=== PATIENT | male | born 1950 | race African-American/Black ===

== ENCOUNTER 2016-10-14 09:47 | Inpatient (IN) | payer OTHER ==
[2016-10-14 11:13] VITALS: BMI 22.0
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
[2016-10-14] MEDS ORDERED: MAG HYDROX/AL HYDROX/SIMETH 30 ML UNIT-DOSE CUP PO PRN (13:21)
[2016-10-14] MEDS ORDERED: MENTHOL/PHENOL 1 EACH UD MM PRN (13:21)
[2016-10-14] MEDS ORDERED: guaiFENesin/D-METHORPHAN HB 10 ML UNIT-DOSE CUPS PO PRN (13:21)
[2016-10-14] MEDS ORDERED: ACETAMINOPHEN 325 MG TABLET (FP) PO PRN (13:21)
[2016-10-14] MEDS ORDERED: chlordiazePOXIDE HCL 25 MG CAPSULE PO PRN (13:21)
[2016-10-14] MEDS ORDERED: diphenhydrAMINE HCL 50 MG CAPSULE PO PRN (13:21)
[2016-10-14] MEDS ORDERED: MAGNESIUM HYDROX 2400MG/30ML ORAL SUSPENSION 30 ML CUP PO PRN (13:21)
[2016-10-14] MEDS ORDERED: IBUPROFEN 400 MG TABLET (FP) PO PRN (13:21)
[2016-10-14] MEDS ORDERED: MAGNESIUM CITRATE 300 ML BOTTLE PO PRN (13:21)
[2016-10-14] MEDS ORDERED: NICOTINE POLACRILEX 2 MG GUM BUC PRN (13:21)
[2016-10-14] MEDS ORDERED: P-EPHED 60MG/TRIPROLIDI 2.5MG TABLET PO PRN (13:21)
[2016-10-14] MEDS ORDERED: hydrOXYzine PAMOATE 25 MG CAPSULE (FP) PO PRN (13:21)
[2016-10-14] MEDS ORDERED: LOPERAMIDE HCL 2 MG CAPSULE PO PRN (13:21)
[2016-10-14] MEDS ORDERED: chlordiazePOXIDE HCL 25 MG CAPSULE PO ONE (13:41)
[2016-10-14] MEDS ORDERED: METHADONE HCL 10 MG TABLET (FOR DETOX USE ONLY) PO ONE ×2 (13:43→23:00)
--- NOTE | 2016-10-14 14:12 | CONSULT ---
[facility] Psychiatric Consult - Data Date of interview: 10/14/16 Admission source: [facility] Identifying data: This is 57 years old male with no psychiatric hospitalization history, multiple medical problems intoxicated with: Crack, Heroin, Alcohol and Nicotine Substance Abuse History: - Smoking Cessation. Smoking history: Current every day smoker. Have you smoked in the past 12 months: Yes. Aproximately how many cigarettes per day: 3. Cigars Per Day: 0. Hx Chewing Tobacco Use: No. Initiated information on smoking cessation: Yes. 'Breaking Loose' booklet given : 10/14/16. - Substance & Tx. History. Hx Alcohol Use: Yes (VODKA/RUM/BEER). Hx Substance Use: Yes (HEROIN/COCAINE). Substance Use Type: Alcohol, Cocaine, Heroin. Hx Substance Use Treatment: Yes ([facility]). - Substances Abused. * * Heroin. Route: Inhalation. Frequency: Daily. Amount used: 2-3 bags. Age of first use: 43. Date of Last Use: 10/13/16. Cocaine. Route: Inhalation. Frequency: Daily. Amount used: $200. Age of first use: 54. Date of Last Use : 10/13/16. Alcohol-vodka/rum/beer. Route: Oral. Frequency: Daily. Amount used: 1 pt./1-6 pk. Age of first use: 17. Date of Last Use: 10/14/16 Medical History: AIDS, GERD, HepC+, Neuropathy Psychiatric History: Patient reports history of Depressioin and anxiety, reports taking prior to admikssion: Gabapentine 300mg po tid Physical/Sexual Abuse/Trauma History: Denies Additional Comment: Gabapentine 300mg po tid Mental Status Exam - Mental Status Exam Alert and Oriented to: Person Cognitive Function: Fair Patient Appearance: Unkempt Mood: Sad Affect: Flat Patient Behavior: Sedated Speech Pattern: Delayed Voice Loudness: Mildly Soft/Quiet Thought Process: Circumstantial Thought Disorder: Being Controlled Hallucinations: Denies Suicidal Ideation: Denies Homicidal Ideation: Denies Insight/Judgement: Fair Sleep: Difficulty falling asleep Appetite: Weight loss Muscle strength/Tone: Normal Gait/Station: Shuffling Additional Comments: Gabapentine 300mg po tid Psychiatric Findings - Problem List ([place] 1, 2,3) (1) Opioid dependence with withdrawal Current Visit: Yes Status: Acute (2) Alcohol dependence with uncomplicated withdrawal Current Visit: Yes Status: Chronic (3) Alcohol dependence Current Visit: No Status: Active (4) Weight decreased Current Visit: No Status: Active (5) Cocaine dependence Current Visit: No Status: Chronic (6) Drug-induced mood disorder Current Visit: Yes Status: Acute - Initial Treatment Plan Initial Treatment Plan: Gabapentine 300mg po tid
[2016-10-14] MEDS: PANTOPRAZOLE 40 MG TABLET (FP) PO SCH (15:06)
[2016-10-14] MEDS: NICOTINE 14 MG/24 HOURS TOPICAL PATCH TD SCH (15:07)
[2016-10-14] MEDS: chlordiazePOXIDE HCL 25 MG CAPSULE PO SCH ×2 (17:25→22:27)
[2016-10-14] MEDS: THIAMINE HCL 100 MG TABLET (FP) PO SCH (22:27)
[2016-10-14] MEDS: BACITRACIN 0.9 GM PACKET TP SCH (22:27)
--- NOTE | 2016-10-15 00:28 | EKG ---
Test Reason : Blood Pressure : / mmHG Vent. Rate : 071 BPM Atrial Rate : 071 BPM P-R Int : 146 ms QRS Dur : 086 ms QT Int : 412 ms P-R-T Axes : 069 -06 049 degrees QTc Int : 447 ms NORMAL SINUS RHYTHM NORMAL ECG WHEN COMPARED WITH ECG OF 05-APR-2013 09:04, NO SIGNIFICANT CHANGE WAS FOUND Confirmed by ENZO MASTERS MD ([id number]) on 10/15/2016 12:28:02 AM Referred By: Anthony Rock Confirmed By:ENZO MASTERS MD
[2016-10-15] MEDS: chlordiazePOXIDE HCL 25 MG CAPSULE PO SCH ×4 (06:21→22:40)
[2016-10-15] MEDS ORDERED: METHADONE HCL 10 MG TABLET (FOR DETOX USE ONLY) PO SCH (10:00)
[2016-10-15] MEDS: NICOTINE 14 MG/24 HOURS TOPICAL PATCH TD SCH (10:19)
[2016-10-15] MEDS: PRENATAL VITAMINS W/ FOLIC ACID TABLET (FP) PO SCH (10:19)
[2016-10-15] MEDS: BACITRACIN 0.9 GM PACKET TP SCH ×2 (10:19→22:40)
[2016-10-15] MEDS: PANTOPRAZOLE 40 MG TABLET (FP) PO SCH (10:19)
[2016-10-15 10:20] LABS: MCH 28.7 pg (25.7-33.7); MCHC 32.7 g/dl (32.0-35.9); MEAN CELL VOLUME 87.8 fl (80-96); MEAN PLT VOLUME 10.3 fl (7.5-11.1); PLATELET COUNT 175 K/MM3 (134-434); RDW 16.4 % (11.9-15.9); WHITE BLOOD COUNT 6.7 K/mm3 (4.0-10.0)
[2016-10-15 10:44] LABS: ALBUMIN 3.7 g/dl (3.4-5.0); BILIRUBIN,TOTAL 0.4 mg/dL (0.2-1.0); CALCIUM 8.9 mg/dL (8.5-10.1); CREATININE 1.4 mg/dL (0.7-1.3); TOT PROT 8.1 g/dl (6.4-8.2)
--- NOTE | 2016-10-15 11:03 | PN ---
S CIWA - CIWA Score Nausea/Vomitin Muscle Tremors: 3 Anxiety: 3 Agitation: 3 Paroxysmal Sweats: 1-Minimal Palms Moist Orientation: 1-Uncertain about Date Tacttile Disturbances: 1-Very Mild Itch/Numbness Auditory Disturbances: 1-Very Mild Visual Disturbances: 1-Very Mild Sensitivity Headache: 2-Mild CIWA-Ar Total Score: 19 BHS COWS - Scale Resting Pulse: 0= ND 80 or Below Sweatin= Chills/Flushing Restless Observation: 3= Extraneous Movement Pupil Size: 1= Pupils >than Normal Bone or Joint Aches: 2= Severe Diffuse Aches Runny Nose/ Eye Tearin= Runny Nose/Eyes GI Upset > 30mins: 2= Nausea/Diarrhea Tremor Observation of Outstretched Hands: 2= Slight Tremor Visible Yawning Observation: 1= 1-2x During Session Anxiety or Irritability: 2=Irritable/Anxious Goose Flesh Skin: 0=Smooth Skin COWS Score: 16 S Progress Note (SOAP) Subjective: ALERT,IRRITABLE,ANXIOUS,INTERRUPTED SLEEP,PAIN IN THE BODY AND BACK Objective: 10/15/16 11:01 Vital Signs Temperature 97.0 F L 10/15/16 10:24 Pulse Rate 72 10/15/16 10:24 Respiratory Rate 20 10/15/16 10:24 Blood Pressure 119/79 10/15/16 10:24 O2 Sat by Pulse Oximetry (%) EKG NSR,NORMAL ECG 10/15/16 11:01 Laboratory Last Values WBC 6.7 K/mm3 (4.0-10.0) D 10/15/16 06:00 RBC 4.51 M/mm3 (4.00-5.60) D 10/15/16 06:00 Hgb 13.0 GM/dL (11.7-16.9) D 10/15/16 06:00 Hct 39.6 % (35.4-49) D 10/15/16 06:00 MCV 87.8 fl (80-96) 10/15/16 06:00 MCHC 32.7 g/dl (32.0-35.9) 10/15/16 06:00 RDW 16.4 % (11.9-15.9) H D 10/15/16 06:00 Plt Count 175 K/MM3 (134-434) 10/15/16 06:00 MPV 10.3 fl (7.5-11.1) D 10/15/16 06:00 Sodium 141 mmol/L (136-145) 10/15/16 06:00 Potassium 4.5 mmol/L (3.5-5.1) D 10/15/16 06:00 Chloride 101 mmol/L (98-107) 10/15/16 06:00 Carbon Dioxide 31 mmol/L (21-32) D 10/15/16 06:00 Anion Gap 9 (8-16) 10/15/16 06:00 BUN 21 mg/dL (7-18) H D 10/15/16 06:00 Creatinine 1.4 mg/dL (0.7-1.3) H 10/15/16 06:00 Creat Clearance w eGFR 50.86 (>60) 10/15/16 06:00 Random Glucose 91 mg/dL (74-106) D 10/15/16 06:00 Calcium 8.9 mg/dL (8.5-10.1) 10/15/16 06:00 Total Bilirubin 0.4 mg/dL (0.2-1.0) D 10/15/16 06:00 AST 38 U/L (15-37) H D 10/15/16 06:00 ALT 21 U/L (12-78) D 10/15/16 06:00 Alkaline Phosphatase 100 U/L (45-117) D 10/15/16 06:00 Total Protein 8.1 g/dl (6.4-8.2) D 10/15/16 06:00 Albumin 3.7 g/dl (3.4-5.0) D 10/15/16 06:00 LABS PENDING Assessment: 10/15/16 11:02 WITHDRAWAL SYMPTOM Plan: CONTINUE DETOX
[2016-10-15] MEDS: THIAMINE HCL 100 MG TABLET (FP) PO SCH (22:40)
[2016-10-16] MEDS: chlordiazePOXIDE HCL 25 MG CAPSULE PO SCH ×2 (05:49→10:09)
[2016-10-16] MEDS: NICOTINE 14 MG/24 HOURS TOPICAL PATCH TD SCH (10:07)
[2016-10-16] MEDS: BACITRACIN 0.9 GM PACKET TP SCH ×2 (10:08→23:20)
[2016-10-16] MEDS: PRENATAL VITAMINS W/ FOLIC ACID TABLET (FP) PO SCH (10:08)
[2016-10-16] MEDS: METHADONE HCL 5 MG TABLET (FOR DETOX USE ONLY) PO SCH (10:09)
[2016-10-16] MEDS: PANTOPRAZOLE 40 MG TABLET (FP) PO SCH (10:09)
--- NOTE | 2016-10-16 11:57 | PN ---
S CIWA - CIWA Score Nausea/Vomitin Muscle Tremors: 3 Anxiety: 3 Agitation: 2 Paroxysmal Sweats: 1-Minimal Palms Moist Orientation: 0-Oriented Tacttile Disturbances: 1-Very Mild Itch/Numbness Auditory Disturbances: 1-Very Mild Visual Disturbances: 1-Very Mild Sensitivity Headache: 2-Mild CIWA-Ar Total Score: 17 BHS COWS - Scale Resting Pulse: 0= [place] 80 or Below Sweatin= Chills/Flushing Restless Observation: 3= Extraneous Movement Pupil Size: 1= Pupils >than Normal Bone or Joint Aches: 2= Severe Diffuse Aches Runny Nose/ Eye Tearin= Runny Nose/Eyes GI Upset > 30mins: 2= Nausea/Diarrhea Tremor Observation of Outstretched Hands: 2= Slight Tremor Visible Yawning Observation: 1= 1-2x During Session Anxiety or Irritability: 2=Irritable/Anxious Goose Flesh Skin: 0=Smooth Skin COWS Score: 16 S Progress Note (SOAP) Subjective: ALERT,IRRITABLE,ANXIOUS,INTERRUPTED SLEEP,TREMOR,PAIN IN BODY AND BACK Objective: 10/16/16 11:56 Vital Signs Temperature 98 F 10/16/16 09:59 Pulse Rate 73 10/16/16 09:59 Respiratory Rate 18 10/16/16 09:59 Blood Pressure 123/72 10/16/16 09:59 O2 Sat by Pulse Oximetry (%) Laboratory Last Values WBC 6.7 K/mm3 (4.0-10.0) D 10/15/16 06:00 RBC 4.51 M/mm3 (4.00-5.60) D 10/15/16 06:00 Hgb 13.0 GM/dL (11.7-16.9) D 10/15/16 06:00 Hct 39.6 % (35.4-49) D 10/15/16 06:00 MCV 87.8 fl (80-96) 10/15/16 06:00 MCHC 32.7 g/dl (32.0-35.9) 10/15/16 06:00 RDW 16.4 % (11.9-15.9) H D 10/15/16 06:00 Plt Count 175 K/MM3 (134-434) 10/15/16 06:00 MPV 10.3 fl (7.5-11.1) D 10/15/16 06:00 Sodium 141 mmol/L (136-145) 10/15/16 06:00 Potassium 4.5 mmol/L (3.5-5.1) D 10/15/16 06:00 Chloride 101 mmol/L (98-107) 10/15/16 06:00 Carbon Dioxide 31 mmol/L (21-32) D 10/15/16 06:00 Anion Gap 9 (8-16) 10/15/16 06:00 BUN 21 mg/dL (7-18) H D 10/15/16 06:00 Creatinine 1.4 mg/dL (0.7-1.3) H 10/15/16 06:00 Creat Clearance w eGFR 50.86 (>60) 10/15/16 06:00 Random Glucose 91 mg/dL (74-106) D 10/15/16 06:00 Calcium 8.9 mg/dL (8.5-10.1) 10/15/16 06:00 Total Bilirubin 0.4 mg/dL (0.2-1.0) D 10/15/16 06:00 AST 38 U/L (15-37) H D 10/15/16 06:00 ALT 21 U/L (12-78) D 10/15/16 06:00 Alkaline Phosphatase 100 U/L (45-117) D 10/15/16 06:00 Total Protein 8.1 g/dl (6.4-8.2) D 10/15/16 06:00 Albumin 3.7 g/dl (3.4-5.0) D 10/15/16 06:00 RPR Titer Nonreactive (NONREACTIVE) 10/15/16 06:00 Assessment: 10/16/16 11:57 WITHDRAWAL SYMPTOM Plan: CONTINUE DETOX
[2016-10-16 14:52] LABS: URINE APPEARANCE CLEAR; URINE BILIRUBIN NEGATIVE (NEGATIVE); URINE BLOOD NEGATIVE (NEGATIVE); URINE COLOR YELLOW; URINE GLUCOSE (UA) NEGATIVE (NEGATIVE); URINE KETONE NEGATIVE (NEGATIVE); URINE LEUK ESTERASE NEGATIVE (NEGATIVE); URINE NITRITE NEGATIVE (NEGATIVE); URINE PROTEIN NEGATIVE (NEGATIVE); URINE UROBILINOGEN NEGATIVE E.U./dl (0.2-1.0)
[2016-10-16] MEDS: chlordiazePOXIDE 5 MG CAPSULE PO SCH ×2 (18:52→23:19)
[2016-10-16] MEDS: THIAMINE HCL 100 MG TABLET (FP) PO SCH (23:19)
[2016-10-17] MEDS: chlordiazePOXIDE 5 MG CAPSULE PO SCH ×2 (06:00→11:00)
[2016-10-17] MEDS: BACITRACIN 0.9 GM PACKET TP SCH ×2 (10:00→22:47)
[2016-10-17] MEDS: NICOTINE 14 MG/24 HOURS TOPICAL PATCH TD SCH (11:00)
[2016-10-17] MEDS: METHADONE HCL 5 MG TABLET (FOR DETOX USE ONLY) PO SCH (11:00)
[2016-10-17] MEDS: PANTOPRAZOLE 40 MG TABLET (FP) PO SCH (11:00)
[2016-10-17] MEDS: PRENATAL VITAMINS W/ FOLIC ACID TABLET (FP) PO SCH (11:00)
--- NOTE | 2016-10-17 12:23 | PN ---
S Progress Note Note: pt states he walked into the bathroom, missed his step and bumped his forehead on the bathroom sink. pt denies any headache, dizziness no bruising no skin breakdown noted. report given to Debby CHEW at [facility] for evaluation.
[2016-10-17] MEDS ORDERED: chlordiazePOXIDE HCL 10 MG CAPSULE PO SCH (17:00)
[2016-10-17] MEDS: THIAMINE HCL 100 MG TABLET (FP) PO SCH (22:47)
--- NOTE | 2016-10-18 09:56 | PN ---
S Progress Note (SOAP) Subjective: ALERT,NO COMPLAINT Objective: 10/18/16 09:55 Vital Signs Temperature 97.9 F 10/18/16 08:00 Pulse Rate 60 10/18/16 08:00 Respiratory Rate 16 10/18/16 08:00 Blood Pressure 126/78 10/18/16 08:00 O2 Sat by Pulse Oximetry (%) Assessment: 10/18/16 09:55 DETOX COMPLETED,NO WITHDRAWAL SYMPTOM Plan: DISCHARGE TODAY,FOLLOW UP WITH [facility]ATION [facility]EMENT
[2016-10-18] MEDS ORDERED: METHADONE HCL 5 MG TABLET (FOR DETOX USE ONLY) PO SCH (10:00)
[2016-10-18] MEDS ORDERED: METHADONE HCL 10 MG TABLET (FOR DETOX USE ONLY) PO SCH (10:00)
--- NOTE | 2016-10-18 10:02 | DS ---
[facility] Detox Discharge Summary Admission Date: 10/14/16 Discharge Date: 10/18/16 - History Present History: Alcohol Dependence, Opioid Dependence Pertinent Past History: HEPATITIS C NEUROPATHY AIDS GERD - Physical Exam Results Vital Signs: Vital Signs Temperature 97.9 F 10/18/16 08:00 Pulse Rate 60 10/18/16 08:00 Respiratory Rate 16 10/18/16 08:00 Blood Pressure 126/78 10/18/16 08:00 O2 Sat by Pulse Oximetry (%) Pertinent Admission Physical Exam Findings: WITHDRAWAL SYMPTOM - Treatment Hospital Course: Detox Protocol Followed, Detoxed Safely, Responded well, Discharged Condition Good Patient has Accepted a Rehab Referral to: FOLLOW UP WITH AFTER CARE PROGRAM ARRANGEMENT [facility] - Medication Discharge Medications: Ambulatory Orders Emtricitabine/Tenofovir [Truvada Tablet] 1 tab PO DAILY 03/31/13 Atorvastatin Ca [Lipitor] 10 mg PO HS #10 04/08/13 Darunavir Ethanolate [Prezista -] 800 mg PO DAILY #10 04/08/13 Gabapentin [Neurontin -] 300 mg PO Q8H #10 04/08/13 Pantoprazole Sodium [Protonix] 40 mg PO DAILY #10 tablet. 04/08/13 Ritonavir [Norvir -] 100 mg PO DAILY #7 04/08/13 Azithromycin [Zithromax 250mg Tablets -] 250 mg PO DAILY #5 tablet 07/20/16 - AMA Did Patient Leave Against Medical Advice: No
[2016-10-18] MEDS: BACITRACIN 0.9 GM PACKET TP SCH (10:41)
[2016-10-18] MEDS: NICOTINE 14 MG/24 HOURS TOPICAL PATCH TD SCH (10:41)
[2016-10-18] MEDS: PRENATAL VITAMINS W/ FOLIC ACID TABLET (FP) PO SCH (10:41)
[2016-10-18] MEDS: PANTOPRAZOLE 40 MG TABLET (FP) PO SCH (10:41)
[2016-10-18 17:52] VITALS: BP 107/64; PULSE 77; TEMP 98.6
[2016-10-19] MEDS ORDERED: METHADONE HCL 5 MG TABLET (FOR DETOX USE ONLY) PO SCH (06:00)
== END 2016-10-18 17:21 | disposition other institution (70) | DRG 896 ==
LOC: YASAS 09:47 → Y6N 13:19
PROVIDERS: ADMIT Internal Medicine; ATTEND Internal Medicine
PROC: HZ2ZZZZ Detoxification Services for Substance Abuse Treatment (ICD-10-PCS; principal; 2016-10-18)
DX: F11.23 Opioid dependence with withdrawal (principal); B20 Human immunodeficiency virus [HIV] disease; F14.20 Cocaine dependence, uncomplicated; F10.230 Alcohol dependence with withdrawal, uncomplicated; F19.24 Other psychoactive substance dependence with psychoactive substance-induced mood disorder; B18.2 Chronic viral hepatitis C; R63.4 Abnormal weight loss; Z68.22 Body mass index [BMI] 22.0-22.9, adult
CPT/HCPCS: 36415; 80053; 81003; 85027; 86593; 93005; 93010

== ENCOUNTER 2016-10-17 13:07 | Emergency (ER) | payer OTHER ==
[2016-10-17 13:25] VITALS: TEMP 97.8; BMI 22.0
--- NOTE | 2016-10-17 14:06 | PDOC ---
[id number] HEAD INJURY Time Seen by Provider: 10/17/16 13:20 History Source: Patient, Care Provider (Vipul) Exam Limitations: No Limitations - History of Present Illness Initial Comments: 10/17/16 13:41 66-year-old male sent over from [facility] for evaluation of head injury. As per staff patient had stumbled forward this morning after med past and bumped his head onto the tile floor. As per Vipul ADMINISTRATIVE SERVICES ASSISTANT patient had no visible injury or change in mentation but decided sent him over here since he has been appearing more off-balance and groggy since starting methadone. Patient states is there for alcohol/cocaine use and denies any drug problems but states he initially stated the above upon admission and was started on methadone. Patient denies headache, visual changes, dizziness, neck pain, chest pain, shortness of breath. Pt with hx of hep c, hiv, and anemia. Occurred: reports: just prior to arrival Severity: reports: mild Pain Location: reports: head Method of Injury: Yes: fall Modifying Factors: improves with: None Loss of Consciousness: no loss of consciousness Associated Symptoms (Fall): denies symptoms Past History - Past Medical History Allergies/Adverse Reactions: Allergies Allergy/AdvReac Type Severity Reaction Status Date / Time Penicillins Allergy Severe Difficulty Verified 10/17/16 13:17 Breathing Home Medications: Ambulatory Orders Emtricitabine/Tenofovir [Truvada Tablet] 1 tab PO DAILY 03/31/13 Atorvastatin Ca [Lipitor] 10 mg PO HS #10 04/08/13 Darunavir Ethanolate [Prezista -] 800 mg PO DAILY #10 04/08/13 Gabapentin [Neurontin -] 300 mg PO Q8H #10 04/08/13 Pantoprazole Sodium [Protonix] 40 mg PO DAILY #10 tablet. 04/08/13 Ritonavir [Norvir -] 100 mg PO DAILY #7 04/08/13 Azithromycin [Zithromax 250mg Tablets -] 250 mg PO DAILY #5 tablet 07/20/16 Anemia: Yes Asthma: No Cancer: No Cardiac Disorders: Yes (HX HEART MURMUR) CVA: No COPD: No CHF: No Dementia: No Diabetes: No GI Disorders: Yes (ACID REFLUX-PRILOSEC) Disorders: No HTN: No Hypercholesterolemia: Yes (on med) HIV: Yes (HIV) Kidney Stones: No Liver Disease: Yes (HEP C; REPORTS TO HAVE COMPELTED TREATMENT ) Suicide Attempt (Hx): Yes (pill overdose in 1995;DENIES CURRENT IDEATIONS) Seizures: No Thyroid Disease: No - Surgical History Abdominal Surgery: No Appendectomy: No Cardiac Surgery: No Cholecystectomy: No Lung Surgery: No Neurologic Surgery: No Orthopedic Surgery: No - Reproductive History Testicular Surgery: No - Psycho/Social/Smoking Cessation Hx Anxiety: Yes Suicidal Ideation: No Smoking Status: Yes Smoking History: Current every day smoker Have you smoked in the past 12 months: Yes Number of Cigarettes Smoked Daily: 3 Cigars Per Day: 0 Information on smoking cessation initiated: No 'Breaking Loose' booklet given: 10/14/16 Hx Alcohol Use: Yes Drug/Substance Use Hx: Yes Substance Use Type: Alcohol, Cocaine, Heroin Hx Substance Use Treatment: Yes ([facility]) Patient Lives Alone: No Trauma Specific PMHX - Complaint Specific PMHX Arthritis: No Review of Systems - Review of Systems Able to Perform ROS?: Yes Constitutional: Yes: Symptoms Reported, Weakness (mild generalized) HEENTM: No: Symptoms Reported Respiratory: No: Symptoms reported Cardiac (ROS): No: Symptoms Reported ABD/GI: No: Symptoms Reported : No: Symptoms Reported Musculoskeletal: No: Symptoms Reported Integumentary: No: Symptoms Reported Neurological: No: Symptoms reported *Physical Exam - Vital Signs Last Vital Signs Temp Pulse Resp BP Pulse Ox 97.8 F 65 18 103/75 99 10/17/16 13:15 10/17/16 13:15 10/17/16 13:15 10/17/16 13:15 10/17/16 13:15 - Physical Exam General Appearance: Yes: Nourished, Appropriately Dressed. No: Apparent Distress HEENT: positive: EOMI, RAMANDEEP, TMs Normal, Pharynx Normal (moist). negative: Pale Conjunctivae Neck: positive: Supple. negative: Tender, Decreased range of motion Respiratory/Chest: positive: Lungs Clear, Normal Breath Sounds. negative: Respiratory Distress, Accessory Muscle Use Cardiovascular: positive: Regular Rhythm, Regular Rate. negative: Murmur Gastrointestinal/Abdominal: positive: Soft. negative: Tenderness Integumentary: positive: Normal Color, Warm, Moist. negative: Swelling, Ecchymosis Neurologic: positive: Motor Strength 5/5 (ambulatory) ED Treatment Course - RADIOLOGY Radiology Studies Ordered: Category Date Time Status HEAD CT WITHOUT CONTRAST [CT] Stat CT Scan 10/17/16 13:22 Ordered Medical Decision Making - Medical Decision Making 10/17/16 13:39 Patient with witnessed fall this morning with a closed head injury. As per NAINA Ruiz patient had no visible injury was sent here for head CT and then to return back to program. She states patient will also be stopped on methadone since she feels the methadone has caused him to feel groggy and so this morning' s dose was his last dose. Patient no acute findings on exam patient requesting to eat. Patient ordered for head CT and will be given a tray after CT results. 10/17/16 14:10 CT negative. Patient remains asymptomatic and will sent back to [facility]. 10/17/16 15:03 Case discussed with NAINA Matthew and states pt will have labs done upon return. *DC/Admit/Observation/Transfer Diagnosis at time of Disposition: Closed head injury Qualifiers: Encounter type: initial encounter Qualified Code(s): S09.90XA - Unspecified injury of head, initial encounter - Discharge Dispostion Disposition: I.P. ALCOHOL/SUBS ABUSE REHAB Condition at time of disposition: Good - Referrals Referrals: STAFF,NOT ON [Primary Care Provider] - - Patient Instructions Printed Discharge Instructions: DI for Closed Head Injury Additional Instructions: Head CT was negative for acute findings. Vital signs stable. Please hold methadone as discussed.
[2016-10-17 15:04] VITALS: BP 121/76; PULSE 66
== END 2016-10-17 15:04 | disposition other institution (70) ==
LOC: JER 13:07
DX: J09.X2 Influenza due to identified novel influenza A virus with other respiratory manifestations (principal)
CPT/HCPCS: 70450-TC; 99281-25

== ENCOUNTER 2016-10-18 18:31 | Inpatient (IN) | payer OTHER ==
--- NOTE | 2016-10-18 18:42 | HP ---
[facility] Rehab Assess/Revision - Admission History Admitted to Rehab from: [facility] Date of Admission to Rehab: 10/18/16 - Findings Detox History & Physical reviewed: Yes Concur with findings: Yes Comments/Additional Findings: FOR REHAB PROTOCOL
[2016-10-18] MEDS ORDERED: MAG HYDROX/AL HYDROX/SIMETH 30 ML UNIT-DOSE CUP PO PRN (18:45)
[2016-10-18] MEDS ORDERED: IBUPROFEN 400 MG TABLET (FP) PO PRN (18:45)
[2016-10-18] MEDS ORDERED: ACETAMINOPHEN 325 MG TABLET (FP) PO PRN (18:45)
[2016-10-18] MEDS ORDERED: LOPERAMIDE HCL 2 MG CAPSULE PO PRN (18:45)
[2016-10-18] MEDS ORDERED: hydrOXYzine PAMOATE 25 MG CAPSULE (FP) PO PRN (18:45)
[2016-10-18] MEDS ORDERED: MAGNESIUM HYDROX 2400MG/30ML ORAL SUSPENSION 30 ML CUP PO PRN (18:45)
[2016-10-18] MEDS ORDERED: MAGNESIUM CITRATE 300 ML BOTTLE PO PRN (18:45)
[2016-10-18] MEDS ORDERED: MENTHOL/PHENOL 1 EACH UD MM PRN (18:45)
[2016-10-18] MEDS ORDERED: P-EPHED 60MG/TRIPROLIDI 2.5MG TABLET PO PRN (18:45)
[2016-10-18] MEDS: GABAPENTIN 300 MG CAPSULE (FP) PO SCH (21:47)
[2016-10-18] MEDS: ATORVASTATIN CA 10 MG TABLET (FP) PO SCH (21:47)
[2016-10-18] MEDS: THIAMINE HCL 100 MG TABLET (FP) PO SCH (21:47)
--- NOTE | 2016-10-19 03:06 | PN ---
[facility] Progress Note Note: asked to see pt
[2016-10-19] MEDS: GABAPENTIN 300 MG CAPSULE (FP) PO SCH ×2 (03:48→11:06)
[2016-10-19] MEDS: AZITHROMYCIN 250 MG TABLET (FP) PO SCH (09:48)
[2016-10-19] MEDS: PANTOPRAZOLE 40 MG TABLET (FP) PO SCH (09:49)
[2016-10-19] MEDS: PRENATAL VITAMINS W/ FOLIC ACID TABLET (FP) PO SCH (09:49)
[2016-10-19] MEDS: DARUNAVIR ETHANOLATE 800 MG TAB PO SCH (09:49)
[2016-10-19] MEDS ORDERED: PATIENT'S OWN MEDICATION (NON-FORMULARY) (Darunavir Ethanolate [Prezista -] 800 MG) PO SCH (10:00)
--- NOTE | 2016-10-19 12:00 | PN ---
[facility] Progress Note Note: PATIENT IS DROWSY Vital Signs Temperature 97.9 F 10/19/16 07:09 Pulse Rate 80 10/19/16 07:09 Respiratory Rate 20 10/19/16 07:09 Blood Pressure 113/71 10/19/16 07:09 O2 Sat by Pulse Oximetry (%) Abnormal Lab Results 10/19/16 07:50 Ammonia 45.83 H WILL START ON LACTULOSE 20 GRAMS PO BID D/C TYLENOL D/C NEURONTIN CLOSE MONITORING
[2016-10-19] MEDS: RITONAVIR 100 MG TABLET PO SCH (12:08)
[2016-10-19] MEDS: EMTRICITABINE 200MG/TENOFOVIR 300MG PO SCH (12:09)
[2016-10-19] MEDS ORDERED: LACTULOSE 20 GM/30 ML UDC (FOR ORAL USE ONLY) PO ONE (12:15)
[2016-10-19] MEDS: ATORVASTATIN CA 10 MG TABLET (FP) PO SCH (21:48)
[2016-10-19] MEDS: THIAMINE HCL 100 MG TABLET (FP) PO SCH (21:48)
[2016-10-19] MEDS: LACTULOSE 20 GM/30 ML UDC (FOR ORAL USE ONLY) PO SCH (21:49)
[2016-10-20] MEDS: PRENATAL VITAMINS W/ FOLIC ACID TABLET (FP) PO SCH (10:16)
[2016-10-20] MEDS: AZITHROMYCIN 250 MG TABLET (FP) PO SCH (10:16)
[2016-10-20] MEDS: EMTRICITABINE 200MG/TENOFOVIR 300MG PO SCH (10:16)
[2016-10-20] MEDS: RITONAVIR 100 MG TABLET PO SCH (10:16)
[2016-10-20] MEDS: PANTOPRAZOLE 40 MG TABLET (FP) PO SCH (10:16)
[2016-10-20] MEDS: DARUNAVIR ETHANOLATE 800 MG TAB PO SCH (10:16)
[2016-10-20] MEDS: LACTULOSE 20 GM/30 ML UDC (FOR ORAL USE ONLY) PO SCH ×2 (10:17→22:07)
[2016-10-20] MEDS: ATORVASTATIN CA 10 MG TABLET (FP) PO SCH (22:06)
[2016-10-20] MEDS: THIAMINE HCL 100 MG TABLET (FP) PO SCH (22:06)
[2016-10-21] MEDS: AZITHROMYCIN 250 MG TABLET (FP) PO SCH (09:28)
[2016-10-21] MEDS: EMTRICITABINE 200MG/TENOFOVIR 300MG PO SCH (09:28)
[2016-10-21] MEDS: RITONAVIR 100 MG TABLET PO SCH (09:28)
[2016-10-21] MEDS: DARUNAVIR ETHANOLATE 800 MG TAB PO SCH (09:28)
[2016-10-21] MEDS: PANTOPRAZOLE 40 MG TABLET (FP) PO SCH (09:28)
[2016-10-21] MEDS: LACTULOSE 20 GM/30 ML UDC (FOR ORAL USE ONLY) PO SCH ×2 (09:30→21:33)
[2016-10-21] MEDS: PRENATAL VITAMINS W/ FOLIC ACID TABLET (FP) PO SCH (09:30)
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
[2016-10-21] MEDS: GABAPENTIN 300 MG CAPSULE (FP) PO SCH ×2 (14:16→21:34)
[2016-10-21] MEDS: THIAMINE HCL 100 MG TABLET (FP) PO SCH (21:34)
[2016-10-21] MEDS: ATORVASTATIN CA 10 MG TABLET (FP) PO SCH (21:34)
[2016-10-21] MEDS ORDERED: MIRTAZAPINE 15 MG TABLET (FP) PO SCH (22:00)
[2016-10-22] MEDS: GABAPENTIN 300 MG CAPSULE (FP) PO SCH ×3 (06:22→21:28)
[2016-10-22] MEDS: DARUNAVIR ETHANOLATE 800 MG TAB PO SCH (10:02)
[2016-10-22] MEDS: PRENATAL VITAMINS W/ FOLIC ACID TABLET (FP) PO SCH (10:02)
[2016-10-22] MEDS: PANTOPRAZOLE 40 MG TABLET (FP) PO SCH (10:02)
[2016-10-22] MEDS: EMTRICITABINE 200MG/TENOFOVIR 300MG PO SCH (10:03)
[2016-10-22] MEDS: RITONAVIR 100 MG TABLET PO SCH (10:03)
[2016-10-22] MEDS: LACTULOSE 20 GM/30 ML UDC (FOR ORAL USE ONLY) PO SCH ×2 (10:04→21:28)
--- NOTE | 2016-10-22 14:04 | PN ---
S Progress Note Note: Patient was seen today due to the fact that patient is very sedated, reports although he slept well all night, but 5this morning he feels weak and tired and wants to stay in bed, will d/c Remeron, continue the rest.
[2016-10-22] MEDS: THIAMINE HCL 100 MG TABLET (FP) PO SCH (21:28)
[2016-10-22] MEDS: ATORVASTATIN CA 10 MG TABLET (FP) PO SCH (21:28)
[2016-10-23] MEDS: GABAPENTIN 300 MG CAPSULE (FP) PO SCH ×3 (06:15→21:31)
[2016-10-23] MEDS: PANTOPRAZOLE 40 MG TABLET (FP) PO SCH (09:43)
[2016-10-23] MEDS: LACTULOSE 20 GM/30 ML UDC (FOR ORAL USE ONLY) PO SCH ×2 (09:43→21:31)
[2016-10-23] MEDS: DARUNAVIR ETHANOLATE 800 MG TAB PO SCH (09:43)
[2016-10-23] MEDS: PRENATAL VITAMINS W/ FOLIC ACID TABLET (FP) PO SCH (09:43)
[2016-10-23] MEDS: RITONAVIR 100 MG TABLET PO SCH (09:45)
[2016-10-23] MEDS: EMTRICITABINE 200MG/TENOFOVIR 300MG PO SCH (09:46)
[2016-10-23] MEDS: ATORVASTATIN CA 10 MG TABLET (FP) PO SCH (21:31)
[2016-10-23] MEDS: THIAMINE HCL 100 MG TABLET (FP) PO SCH (21:31)
[2016-10-24] MEDS: GABAPENTIN 300 MG CAPSULE (FP) PO SCH ×3 (06:25→21:45)
[2016-10-24] MEDS: DARUNAVIR ETHANOLATE 800 MG TAB PO SCH (09:43)
[2016-10-24] MEDS: RITONAVIR 100 MG TABLET PO SCH (09:43)
[2016-10-24] MEDS: PRENATAL VITAMINS W/ FOLIC ACID TABLET (FP) PO SCH (09:43)
[2016-10-24] MEDS: LACTULOSE 20 GM/30 ML UDC (FOR ORAL USE ONLY) PO SCH ×2 (09:43→21:45)
[2016-10-24] MEDS: EMTRICITABINE 200MG/TENOFOVIR 300MG PO SCH (09:43)
[2016-10-24] MEDS: PANTOPRAZOLE 40 MG TABLET (FP) PO SCH (09:43)
[2016-10-24] MEDS: THIAMINE HCL 100 MG TABLET (FP) PO SCH (21:45)
[2016-10-24] MEDS: ATORVASTATIN CA 10 MG TABLET (FP) PO SCH (21:45)
[2016-10-25] MEDS: GABAPENTIN 300 MG CAPSULE (FP) PO SCH ×3 (06:23→21:30)
[2016-10-25] MEDS: EMTRICITABINE 200MG/TENOFOVIR 300MG PO SCH (09:46)
[2016-10-25] MEDS: PRENATAL VITAMINS W/ FOLIC ACID TABLET (FP) PO SCH (09:46)
[2016-10-25] MEDS: PANTOPRAZOLE 40 MG TABLET (FP) PO SCH (09:46)
[2016-10-25] MEDS: DARUNAVIR ETHANOLATE 800 MG TAB PO SCH (09:46)
[2016-10-25] MEDS: RITONAVIR 100 MG TABLET PO SCH (09:46)
[2016-10-25] MEDS: LACTULOSE 20 GM/30 ML UDC (FOR ORAL USE ONLY) PO SCH ×2 (09:47→21:29)
[2016-10-25] MEDS: ATORVASTATIN CA 10 MG TABLET (FP) PO SCH (21:29)
[2016-10-25] MEDS: THIAMINE HCL 100 MG TABLET (FP) PO SCH (21:29)
[2016-10-25] MEDS: diphenhydrAMINE HCL 50 MG CAPSULE PO PRN (21:30)
[2016-10-26] MEDS: GABAPENTIN 300 MG CAPSULE (FP) PO SCH ×3 (06:49→21:17)
[2016-10-26] MEDS: EMTRICITABINE 200MG/TENOFOVIR 300MG PO SCH (09:42)
[2016-10-26] MEDS: LACTULOSE 20 GM/30 ML UDC (FOR ORAL USE ONLY) PO SCH ×2 (09:42→21:17)
[2016-10-26] MEDS: PRENATAL VITAMINS W/ FOLIC ACID TABLET (FP) PO SCH (09:43)
[2016-10-26] MEDS: PANTOPRAZOLE 40 MG TABLET (FP) PO SCH (09:43)
[2016-10-26] MEDS: DARUNAVIR ETHANOLATE 800 MG TAB PO SCH (09:43)
[2016-10-26] MEDS: RITONAVIR 100 MG TABLET PO SCH (09:43)
[2016-10-26] MEDS: ATORVASTATIN CA 10 MG TABLET (FP) PO SCH (21:17)
[2016-10-26] MEDS: THIAMINE HCL 100 MG TABLET (FP) PO SCH (21:17)
[2016-10-27] MEDS: GABAPENTIN 300 MG CAPSULE (FP) PO SCH ×3 (06:34→21:29)
[2016-10-27] MEDS: EMTRICITABINE 200MG/TENOFOVIR 300MG PO SCH (10:28)
[2016-10-27] MEDS: LACTULOSE 20 GM/30 ML UDC (FOR ORAL USE ONLY) PO SCH ×2 (10:28→21:29)
[2016-10-27] MEDS: DARUNAVIR ETHANOLATE 800 MG TAB PO SCH (10:28)
[2016-10-27] MEDS: PANTOPRAZOLE 40 MG TABLET (FP) PO SCH (10:28)
[2016-10-27] MEDS: RITONAVIR 100 MG TABLET PO SCH (10:28)
[2016-10-27] MEDS: PRENATAL VITAMINS W/ FOLIC ACID TABLET (FP) PO SCH (10:28)
[2016-10-27] MEDS: THIAMINE HCL 100 MG TABLET (FP) PO SCH (21:29)
[2016-10-27] MEDS: ATORVASTATIN CA 10 MG TABLET (FP) PO SCH (21:29)
[2016-10-28] MEDS: GABAPENTIN 300 MG CAPSULE (FP) PO SCH ×3 (05:48→21:20)
[2016-10-28] MEDS: EMTRICITABINE 200MG/TENOFOVIR 300MG PO SCH (10:01)
[2016-10-28] MEDS: LACTULOSE 20 GM/30 ML UDC (FOR ORAL USE ONLY) PO SCH ×2 (10:01→21:20)
[2016-10-28] MEDS: RITONAVIR 100 MG TABLET PO SCH (10:01)
[2016-10-28] MEDS: PRENATAL VITAMINS W/ FOLIC ACID TABLET (FP) PO SCH (10:01)
[2016-10-28] MEDS: PANTOPRAZOLE 40 MG TABLET (FP) PO SCH (10:01)
[2016-10-28] MEDS: DARUNAVIR ETHANOLATE 800 MG TAB PO SCH (10:01)
[2016-10-28] MEDS: ATORVASTATIN CA 10 MG TABLET (FP) PO SCH (21:20)
[2016-10-28] MEDS: THIAMINE HCL 100 MG TABLET (FP) PO SCH (21:20)
[2016-10-28] MEDS: diphenhydrAMINE HCL 50 MG CAPSULE PO PRN (21:21)
[2016-10-29] MEDS: GABAPENTIN 300 MG CAPSULE (FP) PO SCH ×3 (06:18→21:21)
[2016-10-29] MEDS: PRENATAL VITAMINS W/ FOLIC ACID TABLET (FP) PO SCH (09:47)
[2016-10-29] MEDS: RITONAVIR 100 MG TABLET PO SCH (09:47)
[2016-10-29] MEDS: LACTULOSE 20 GM/30 ML UDC (FOR ORAL USE ONLY) PO SCH ×2 (09:47→21:21)
[2016-10-29] MEDS: PANTOPRAZOLE 40 MG TABLET (FP) PO SCH (09:47)
[2016-10-29] MEDS: EMTRICITABINE 200MG/TENOFOVIR 300MG PO SCH (09:47)
[2016-10-29] MEDS: DARUNAVIR ETHANOLATE 800 MG TAB PO SCH (09:47)
[2016-10-29] MEDS: THIAMINE HCL 100 MG TABLET (FP) PO SCH (21:21)
[2016-10-29] MEDS: ATORVASTATIN CA 10 MG TABLET (FP) PO SCH (21:21)
[2016-10-30] MEDS: GABAPENTIN 300 MG CAPSULE (FP) PO SCH ×3 (06:09→21:32)
[2016-10-30] MEDS: PANTOPRAZOLE 40 MG TABLET (FP) PO SCH (09:35)
[2016-10-30] MEDS: LACTULOSE 20 GM/30 ML UDC (FOR ORAL USE ONLY) PO SCH (09:35)
[2016-10-30] MEDS: DARUNAVIR ETHANOLATE 800 MG TAB PO SCH (09:35)
[2016-10-30] MEDS: EMTRICITABINE 200MG/TENOFOVIR 300MG PO SCH (09:36)
[2016-10-30] MEDS: RITONAVIR 100 MG TABLET PO SCH (09:36)
[2016-10-30] MEDS: PRENATAL VITAMINS W/ FOLIC ACID TABLET (FP) PO SCH (09:37)
[2016-10-30 10:27] LABS: CALCIUM 8.7 mg/dL (8.5-10.1); CREATININE 1.3 mg/dL (0.7-1.3)
[2016-10-30] MEDS: diphenhydrAMINE HCL 50 MG CAPSULE PO PRN (21:32)
[2016-10-30] MEDS: ATORVASTATIN CA 10 MG TABLET (FP) PO SCH (21:32)
[2016-10-30] MEDS: THIAMINE HCL 100 MG TABLET (FP) PO SCH (21:32)
[2016-10-31] MEDS: GABAPENTIN 300 MG CAPSULE (FP) PO SCH ×3 (06:14→21:18)
[2016-10-31] MEDS: EMTRICITABINE 200MG/TENOFOVIR 300MG PO SCH (09:37)
[2016-10-31] MEDS: PRENATAL VITAMINS W/ FOLIC ACID TABLET (FP) PO SCH (09:37)
[2016-10-31] MEDS: DARUNAVIR ETHANOLATE 800 MG TAB PO SCH (09:37)
[2016-10-31] MEDS: RITONAVIR 100 MG TABLET PO SCH (09:37)
[2016-10-31] MEDS: LACTULOSE 20 GM/30 ML UDC (FOR ORAL USE ONLY) PO SCH (09:37)
[2016-10-31] MEDS: PANTOPRAZOLE 40 MG TABLET (FP) PO SCH (09:39)
[2016-10-31] MEDS: diphenhydrAMINE HCL 50 MG CAPSULE PO PRN (21:18)
[2016-10-31] MEDS: ATORVASTATIN CA 10 MG TABLET (FP) PO SCH (21:18)
[2016-10-31] MEDS: THIAMINE HCL 100 MG TABLET (FP) PO SCH (21:18)
[2016-11-01] MEDS: GABAPENTIN 300 MG CAPSULE (FP) PO SCH ×3 (06:30→21:17)
[2016-11-01] MEDS: RITONAVIR 100 MG TABLET PO SCH (09:30)
[2016-11-01] MEDS: DARUNAVIR ETHANOLATE 800 MG TAB PO SCH (09:30)
[2016-11-01] MEDS: PRENATAL VITAMINS W/ FOLIC ACID TABLET (FP) PO SCH (09:30)
[2016-11-01] MEDS: LACTULOSE 20 GM/30 ML UDC (FOR ORAL USE ONLY) PO SCH (09:30)
[2016-11-01] MEDS: PANTOPRAZOLE 40 MG TABLET (FP) PO SCH (09:30)
[2016-11-01] MEDS: EMTRICITABINE 200MG/TENOFOVIR 300MG PO SCH (09:31)
--- NOTE | 2016-11-01 10:59 | PN ---
[facility] Progress Note Note: ammonia level is48,on lactulose 2o grams po daily
[2016-11-01] MEDS: ATORVASTATIN CA 10 MG TABLET (FP) PO SCH (21:17)
[2016-11-01] MEDS: THIAMINE HCL 100 MG TABLET (FP) PO SCH (21:17)
[2016-11-02] MEDS: GABAPENTIN 300 MG CAPSULE (FP) PO SCH ×3 (06:03→21:06)
[2016-11-02] MEDS: DARUNAVIR ETHANOLATE 800 MG TAB PO SCH (10:08)
[2016-11-02] MEDS: PANTOPRAZOLE 40 MG TABLET (FP) PO SCH (10:08)
[2016-11-02] MEDS: PRENATAL VITAMINS W/ FOLIC ACID TABLET (FP) PO SCH (10:08)
[2016-11-02] MEDS: RITONAVIR 100 MG TABLET PO SCH (10:08)
[2016-11-02] MEDS: EMTRICITABINE 200MG/TENOFOVIR 300MG PO SCH (10:08)
[2016-11-02] MEDS: LACTULOSE 20 GM/30 ML UDC (FOR ORAL USE ONLY) PO SCH (10:10)
[2016-11-02] MEDS: diphenhydrAMINE HCL 50 MG CAPSULE PO PRN (21:06)
[2016-11-02] MEDS: ATORVASTATIN CA 10 MG TABLET (FP) PO SCH (21:06)
[2016-11-02] MEDS: THIAMINE HCL 100 MG TABLET (FP) PO SCH (21:06)
[2016-11-03] MEDS: GABAPENTIN 300 MG CAPSULE (FP) PO SCH ×3 (06:11→21:30)
[2016-11-03] MEDS: PRENATAL VITAMINS W/ FOLIC ACID TABLET (FP) PO SCH (09:10)
[2016-11-03] MEDS: DARUNAVIR ETHANOLATE 800 MG TAB PO SCH (09:10)
[2016-11-03] MEDS: LACTULOSE 20 GM/30 ML UDC (FOR ORAL USE ONLY) PO SCH (09:10)
[2016-11-03] MEDS: PANTOPRAZOLE 40 MG TABLET (FP) PO SCH (09:10)
[2016-11-03] MEDS: EMTRICITABINE 200MG/TENOFOVIR 300MG PO SCH (09:10)
[2016-11-03] MEDS: RITONAVIR 100 MG TABLET PO SCH (09:11)
[2016-11-03] MEDS: THIAMINE HCL 100 MG TABLET (FP) PO SCH (21:30)
[2016-11-03] MEDS: diphenhydrAMINE HCL 50 MG CAPSULE PO PRN (21:30)
[2016-11-03] MEDS: ATORVASTATIN CA 10 MG TABLET (FP) PO SCH (21:30)
[2016-11-04] MEDS: GABAPENTIN 300 MG CAPSULE (FP) PO SCH ×3 (06:08→21:14)
[2016-11-04] MEDS: PRENATAL VITAMINS W/ FOLIC ACID TABLET (FP) PO SCH (09:34)
[2016-11-04] MEDS: RITONAVIR 100 MG TABLET PO SCH (09:34)
[2016-11-04] MEDS: LACTULOSE 20 GM/30 ML UDC (FOR ORAL USE ONLY) PO SCH (09:34)
[2016-11-04] MEDS: EMTRICITABINE 200MG/TENOFOVIR 300MG PO SCH (09:34)
[2016-11-04] MEDS: PANTOPRAZOLE 40 MG TABLET (FP) PO SCH (09:34)
[2016-11-04] MEDS: DARUNAVIR ETHANOLATE 800 MG TAB PO SCH (09:34)
[2016-11-04] MEDS: ATORVASTATIN CA 10 MG TABLET (FP) PO SCH (21:14)
[2016-11-04] MEDS: THIAMINE HCL 100 MG TABLET (FP) PO SCH (21:14)
[2016-11-04] MEDS: diphenhydrAMINE HCL 50 MG CAPSULE PO PRN (21:15)
[2016-11-05] MEDS: GABAPENTIN 300 MG CAPSULE (FP) PO SCH ×3 (06:16→21:05)
[2016-11-05] MEDS: DARUNAVIR ETHANOLATE 800 MG TAB PO SCH (09:36)
[2016-11-05] MEDS: PRENATAL VITAMINS W/ FOLIC ACID TABLET (FP) PO SCH (09:37)
[2016-11-05] MEDS: EMTRICITABINE 200MG/TENOFOVIR 300MG PO SCH (09:37)
[2016-11-05] MEDS: PANTOPRAZOLE 40 MG TABLET (FP) PO SCH (09:37)
[2016-11-05] MEDS: RITONAVIR 100 MG TABLET PO SCH (09:37)
[2016-11-05] MEDS: LACTULOSE 20 GM/30 ML UDC (FOR ORAL USE ONLY) PO SCH (09:38)
[2016-11-05 10:04] LABS: EOSINOPHIL 5.6 % (0-4.5); MCH 28.8 pg (25.7-33.7); MCHC 32.9 g/dl (32.0-35.9); MEAN CELL VOLUME 87.6 fl (80-96); MEAN PLT VOLUME 9.8 fl (7.5-11.1); NEUTROPHILS 31.6 % (42.8-82.8); PLATELET COUNT 210 K/MM3 (134-434); RDW 17.8 % (11.9-15.9); WHITE BLOOD COUNT 5.2 K/mm3 (4.0-10.0)
[2016-11-05 10:19] LABS: CALCIUM 8.5 mg/dL (8.5-10.1); CREATININE 1.4 mg/dL (0.7-1.3)
[2016-11-05] MEDS: THIAMINE HCL 100 MG TABLET (FP) PO SCH (21:05)
[2016-11-05] MEDS: ATORVASTATIN CA 10 MG TABLET (FP) PO SCH (21:05)
[2016-11-05] MEDS: diphenhydrAMINE HCL 50 MG CAPSULE PO PRN (21:06)
[2016-11-06] MEDS: GABAPENTIN 300 MG CAPSULE (FP) PO SCH ×3 (06:21→21:57)
[2016-11-06] MEDS: PANTOPRAZOLE 40 MG TABLET (FP) PO SCH (09:53)
[2016-11-06] MEDS: DARUNAVIR ETHANOLATE 800 MG TAB PO SCH (09:53)
[2016-11-06] MEDS: LACTULOSE 20 GM/30 ML UDC (FOR ORAL USE ONLY) PO SCH (09:53)
[2016-11-06] MEDS: EMTRICITABINE 200MG/TENOFOVIR 300MG PO SCH (09:55)
[2016-11-06] MEDS: PRENATAL VITAMINS W/ FOLIC ACID TABLET (FP) PO SCH (09:55)
[2016-11-06] MEDS: RITONAVIR 100 MG TABLET PO SCH (09:55)
[2016-11-06] MEDS: diphenhydrAMINE HCL 50 MG CAPSULE PO PRN (21:57)
[2016-11-06] MEDS: THIAMINE HCL 100 MG TABLET (FP) PO SCH (21:57)
[2016-11-06] MEDS: ATORVASTATIN CA 10 MG TABLET (FP) PO SCH (21:57)
[2016-11-07] MEDS: GABAPENTIN 300 MG CAPSULE (FP) PO SCH ×3 (06:17→21:48)
[2016-11-07] MEDS: LACTULOSE 20 GM/30 ML UDC (FOR ORAL USE ONLY) PO SCH (09:52)
[2016-11-07] MEDS: DARUNAVIR ETHANOLATE 800 MG TAB PO SCH (09:52)
[2016-11-07] MEDS: EMTRICITABINE 200MG/TENOFOVIR 300MG PO SCH (09:53)
[2016-11-07] MEDS: PANTOPRAZOLE 40 MG TABLET (FP) PO SCH (09:53)
[2016-11-07] MEDS: RITONAVIR 100 MG TABLET PO SCH (09:53)
[2016-11-07] MEDS: PRENATAL VITAMINS W/ FOLIC ACID TABLET (FP) PO SCH (09:53)
[2016-11-07] MEDS: THIAMINE HCL 100 MG TABLET (FP) PO SCH (21:48)
[2016-11-07] MEDS: diphenhydrAMINE HCL 50 MG CAPSULE PO PRN (21:48)
[2016-11-07] MEDS: ATORVASTATIN CA 10 MG TABLET (FP) PO SCH (21:48)
[2016-11-08] MEDS: GABAPENTIN 300 MG CAPSULE (FP) PO SCH ×3 (06:13→21:18)
[2016-11-08] MEDS: DARUNAVIR ETHANOLATE 800 MG TAB PO SCH (09:53)
[2016-11-08] MEDS: EMTRICITABINE 200MG/TENOFOVIR 300MG PO SCH (09:53)
[2016-11-08] MEDS: RITONAVIR 100 MG TABLET PO SCH (09:53)
[2016-11-08] MEDS: PANTOPRAZOLE 40 MG TABLET (FP) PO SCH (09:53)
[2016-11-08] MEDS: PRENATAL VITAMINS W/ FOLIC ACID TABLET (FP) PO SCH (09:53)
[2016-11-08] MEDS: LACTULOSE 20 GM/30 ML UDC (FOR ORAL USE ONLY) PO SCH (09:54)
--- NOTE | 2016-11-08 10:47 | PN ---
[facility] Progress Note Note: AMMONIA LEVEL IS 45.6 ON 11/05/16 ON LACTULOSE 20 GRAMS PO DAILY
[2016-11-08] MEDS: ATORVASTATIN CA 10 MG TABLET (FP) PO SCH (21:17)
[2016-11-08] MEDS: THIAMINE HCL 100 MG TABLET (FP) PO SCH (21:18)
[2016-11-08] MEDS: diphenhydrAMINE HCL 50 MG CAPSULE PO PRN (21:18)
[2016-11-09] MEDS: GABAPENTIN 300 MG CAPSULE (FP) PO SCH ×3 (06:30→21:14)
[2016-11-09] MEDS: LACTULOSE 20 GM/30 ML UDC (FOR ORAL USE ONLY) PO SCH (10:36)
[2016-11-09] MEDS: PANTOPRAZOLE 40 MG TABLET (FP) PO SCH (10:36)
[2016-11-09] MEDS: DARUNAVIR ETHANOLATE 800 MG TAB PO SCH (10:36)
[2016-11-09] MEDS: RITONAVIR 100 MG TABLET PO SCH (10:36)
[2016-11-09] MEDS: PRENATAL VITAMINS W/ FOLIC ACID TABLET (FP) PO SCH (10:36)
[2016-11-09] MEDS: EMTRICITABINE 200MG/TENOFOVIR 300MG PO SCH (10:37)
[2016-11-09] MEDS: diphenhydrAMINE HCL 50 MG CAPSULE PO PRN (21:14)
[2016-11-09] MEDS: ATORVASTATIN CA 10 MG TABLET (FP) PO SCH (21:14)
[2016-11-09] MEDS: THIAMINE HCL 100 MG TABLET (FP) PO SCH (21:14)
[2016-11-10] MEDS: GABAPENTIN 300 MG CAPSULE (FP) PO SCH ×3 (06:15→21:05)
[2016-11-10] MEDS: DARUNAVIR ETHANOLATE 800 MG TAB PO SCH (10:28)
[2016-11-10] MEDS: PRENATAL VITAMINS W/ FOLIC ACID TABLET (FP) PO SCH (10:28)
[2016-11-10] MEDS: PANTOPRAZOLE 40 MG TABLET (FP) PO SCH (10:28)
[2016-11-10] MEDS: LACTULOSE 20 GM/30 ML UDC (FOR ORAL USE ONLY) PO SCH (10:28)
[2016-11-10] MEDS: RITONAVIR 100 MG TABLET PO SCH (10:28)
[2016-11-10] MEDS: EMTRICITABINE 200MG/TENOFOVIR 300MG PO SCH (10:28)
[2016-11-10] MEDS: ATORVASTATIN CA 10 MG TABLET (FP) PO SCH (21:05)
[2016-11-10] MEDS: THIAMINE HCL 100 MG TABLET (FP) PO SCH (21:05)
[2016-11-10] MEDS: diphenhydrAMINE HCL 50 MG CAPSULE PO PRN (21:05)
[2016-11-11] MEDS: GABAPENTIN 300 MG CAPSULE (FP) PO SCH ×3 (06:14→21:41)
[2016-11-11] MEDS: DARUNAVIR ETHANOLATE 800 MG TAB PO SCH (10:23)
[2016-11-11] MEDS: PANTOPRAZOLE 40 MG TABLET (FP) PO SCH (10:23)
[2016-11-11] MEDS: PRENATAL VITAMINS W/ FOLIC ACID TABLET (FP) PO SCH (10:23)
[2016-11-11] MEDS: LACTULOSE 20 GM/30 ML UDC (FOR ORAL USE ONLY) PO SCH (10:23)
[2016-11-11] MEDS: RITONAVIR 100 MG TABLET PO SCH (10:24)
[2016-11-11] MEDS: EMTRICITABINE 200MG/TENOFOVIR 300MG PO SCH (10:24)
[2016-11-11] MEDS: THIAMINE HCL 100 MG TABLET (FP) PO SCH (21:41)
[2016-11-11] MEDS: diphenhydrAMINE HCL 50 MG CAPSULE PO PRN (21:41)
[2016-11-11] MEDS: ATORVASTATIN CA 10 MG TABLET (FP) PO SCH (21:41)
[2016-11-11] MEDS: guaiFENesin/D-METHORPHAN HB 10 ML UNIT-DOSE CUPS PO PRN (21:42)
[2016-11-12] MEDS: GABAPENTIN 300 MG CAPSULE (FP) PO SCH ×3 (06:27→21:35)
[2016-11-12] MEDS: EMTRICITABINE 200MG/TENOFOVIR 300MG PO SCH (09:47)
[2016-11-12] MEDS: PANTOPRAZOLE 40 MG TABLET (FP) PO SCH (09:47)
[2016-11-12] MEDS: RITONAVIR 100 MG TABLET PO SCH (09:47)
[2016-11-12] MEDS: LACTULOSE 20 GM/30 ML UDC (FOR ORAL USE ONLY) PO SCH (09:47)
[2016-11-12] MEDS: PRENATAL VITAMINS W/ FOLIC ACID TABLET (FP) PO SCH (09:47)
[2016-11-12] MEDS: DARUNAVIR ETHANOLATE 800 MG TAB PO SCH (09:47)
[2016-11-12] MEDS: THIAMINE HCL 100 MG TABLET (FP) PO SCH (21:35)
[2016-11-12] MEDS: ATORVASTATIN CA 10 MG TABLET (FP) PO SCH (21:35)
[2016-11-12] MEDS: diphenhydrAMINE HCL 50 MG CAPSULE PO PRN (21:35)
[2016-11-12] MEDS: guaiFENesin/D-METHORPHAN HB 10 ML UNIT-DOSE CUPS PO PRN (21:37)
[2016-11-13] MEDS: GABAPENTIN 300 MG CAPSULE (FP) PO SCH ×3 (06:16→21:37)
[2016-11-13] MEDS: PRENATAL VITAMINS W/ FOLIC ACID TABLET (FP) PO SCH (10:37)
[2016-11-13] MEDS: DARUNAVIR ETHANOLATE 800 MG TAB PO SCH (10:37)
[2016-11-13] MEDS: PANTOPRAZOLE 40 MG TABLET (FP) PO SCH (10:37)
[2016-11-13] MEDS: RITONAVIR 100 MG TABLET PO SCH (10:38)
[2016-11-13] MEDS: LACTULOSE 20 GM/30 ML UDC (FOR ORAL USE ONLY) PO SCH (10:38)
[2016-11-13] MEDS: EMTRICITABINE 200MG/TENOFOVIR 300MG PO SCH (10:38)
[2016-11-13] MEDS: ATORVASTATIN CA 10 MG TABLET (FP) PO SCH (21:37)
[2016-11-13] MEDS: THIAMINE HCL 100 MG TABLET (FP) PO SCH (21:37)
[2016-11-13] MEDS: diphenhydrAMINE HCL 50 MG CAPSULE PO PRN (21:37)
[2016-11-14] MEDS: GABAPENTIN 300 MG CAPSULE (FP) PO SCH ×3 (06:06→21:12)
[2016-11-14] MEDS: DARUNAVIR ETHANOLATE 800 MG TAB PO SCH (10:08)
[2016-11-14] MEDS: RITONAVIR 100 MG TABLET PO SCH (10:08)
[2016-11-14] MEDS: PRENATAL VITAMINS W/ FOLIC ACID TABLET (FP) PO SCH (10:08)
[2016-11-14] MEDS: PANTOPRAZOLE 40 MG TABLET (FP) PO SCH (10:08)
[2016-11-14] MEDS: EMTRICITABINE 200MG/TENOFOVIR 300MG PO SCH (10:08)
[2016-11-14] MEDS: LACTULOSE 20 GM/30 ML UDC (FOR ORAL USE ONLY) PO SCH (10:09)
[2016-11-14] MEDS: THIAMINE HCL 100 MG TABLET (FP) PO SCH (21:12)
[2016-11-14] MEDS: diphenhydrAMINE HCL 50 MG CAPSULE PO PRN (21:12)
[2016-11-14] MEDS: ATORVASTATIN CA 10 MG TABLET (FP) PO SCH (21:12)
[2016-11-14] MEDS: RANITIDINE HCL 150 MG TABLET (FP) PO SCH (21:59)
[2016-11-15] MEDS: GABAPENTIN 300 MG CAPSULE (FP) PO SCH (05:56)
[2016-11-15 07:11] VITALS: BP 128/77; PULSE 67; TEMP 97.6
[2016-11-15] MEDS: RANITIDINE HCL 150 MG TABLET (FP) PO SCH (10:21)
[2016-11-15] MEDS: PRENATAL VITAMINS W/ FOLIC ACID TABLET (FP) PO SCH (10:21)
[2016-11-15] MEDS: EMTRICITABINE 200MG/TENOFOVIR 300MG PO SCH (10:22)
[2016-11-15] MEDS: RITONAVIR 100 MG TABLET PO SCH (10:22)
[2016-11-15] MEDS: DARUNAVIR ETHANOLATE 800 MG TAB PO SCH (10:24)
[2016-11-15] MEDS: LACTULOSE 20 GM/30 ML UDC (FOR ORAL USE ONLY) PO SCH (10:24)
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
== END 2016-11-15 11:15 | disposition home or self-care (01) | DRG 895 ==
LOC: YASAS 18:31 → Y5N 18:33
PROVIDERS: ADMIT Psychiatry & Neurology Psychiatry; ATTEND Psychiatry & Neurology Psychiatry
PROC: HZ42ZZZ Group Counseling for Substance Abuse Treatment, Cognitive-Behavioral (ICD-10-PCS; principal; 2016-11-15)
DX: F11.20 Opioid dependence, uncomplicated (principal); F14.20 Cocaine dependence, uncomplicated; F10.20 Alcohol dependence, uncomplicated; F17.210 Nicotine dependence, cigarettes, uncomplicated; F41.1 Generalized anxiety disorder; F39 Unspecified mood [affective] disorder; R63.4 Abnormal weight loss; Z68.20 Body mass index [BMI] 20.0-20.9, adult
CPT/HCPCS: 36415; 80048; 82140; 85025